=== PATIENT | female | born 1990 | race Caucasian/White ===

== ENCOUNTER 2025-02-06 16:16 | Emergency (ER) | payer MEDICARE, MEDICAID ==
[~2025-02-06] VITALS: Ht 167.6 cm; Wt 136.3 kg
[2025-02-06 16:26] VITALS: BP 162/102; PULSE 86; RESP 16; TEMP 98.9; O2SAT 98
[2025-02-06] MEDS ORDERED: METR-159 PO (16:56)
[2025-02-06] MEDS ORDERED: DOXY-347 PO (16:56)
[2025-02-06] MEDS: CefTRIAXone 1000mg IM Kit (w/lidocaine diluent) IM ONE (17:05)
== END 2025-02-06 17:13 | disposition home or self-care (01) ==
LOC: ER 16:17
DX: S61.231A Puncture wound without foreign body of left index finger without damage to nail, initial encounter (principal); L08.9 Local infection of the skin and subcutaneous tissue, unspecified; Z88.2 Allergy status to sulfonamides; Z88.0 Allergy status to penicillin; W55.01XA Bitten by cat, initial encounter; Y93.89 Activity, other specified; Y92.89 Other specified places as the place of occurrence of the external cause; Y99.8 Other external cause status
CPT/HCPCS: 96372; 99283; J0696